=== PATIENT | male | born 1955 | race Two or more races ===

== ENCOUNTER 2021-12-17 15:46 | Emergency (ER) | payer MEDICARE, OTHER ==
[~2021-12-17] VITALS: Ht 180.3 cm; Wt 90.9 kg
[2021-12-17 15:46] VITALS: BP 0/0
== END 2021-12-17 17:03 ==
LOC: ER 15:46 → EDBD 15:46 → ER 17:03
DX: I46.9 Cardiac arrest, cause unspecified (principal)
CPT/HCPCS: 31500; 92950